=== PATIENT | female | born 1965 | race Caucasian/White ===

== ENCOUNTER 2020-08-07 14:24 | Emergency (ER) | payer OTHER ==
[~2020-08-07] VITALS: Ht 157.5 cm; Wt 57.6 kg
[2020-08-07 14:46] VITALS: Ht 157.5 cm; Wt 57.6 kg
[2020-08-07 16:01] VITALS: BP 177/75
== END 2020-08-07 16:02 | disposition home or self-care (01) ==
LOC: ED 14:24
DX: F07.81 Postconcussional syndrome (principal); S01.01XD Laceration without foreign body of scalp, subsequent encounter; I10 Essential (primary) hypertension; X58.XXXD Exposure to other specified factors, subsequent encounter